=== PATIENT | female | born 1990 | race Caucasian/White ===

== ENCOUNTER 2016-07-05 18:17 | Emergency (ER) | payer OTHER ==
[2016-07-05 18:35] VITALS: BP 145/90
--- NOTE | 2016-07-05 19:07 | UC ---
Ear Complaint HPI - HPI Summary HPI Summary: constant right ear pain/pressure 2 weeks after a cold. No further sinus congestion or cough. No fever. Good appetite. - History of Current Complaint Chief Complaint: UC Stated Complaint: right ear complaint Time Seen by Provider: 07/05/16 18:57 Hx Obtained From: Patient Hx Last Menstrual Period: 06/10/16 Onset/Duration: Gradual Onset, Lasting Days - 3 Severity Initially: Mild Severity Currently: Moderate Alleviating Factors: Nothing Associated Signs/Symptoms: Positive: URI Symptoms. Negative: Discharge, Hearing Loss, Foreign Body Sensation, Trauma to Ear, Swelling @ - Allergies/Home Medications Allergies/Adverse Reactions: Allergies Allergy/AdvReac Type Severity Reaction Status Date / Time No Known Allergies Allergy Verified 10/03/15 01:59 PMH/Surg Hx/FS Hx/Imm Hx Previously Healthy: Yes Endocrine History Of: Denies: Diabetes GI/ History Of: Denies: Renal Disease - Surgical History Surgical History: None - Family History Known Family History: Negative: Respiratory Disease, Seizure Disorder - Social History Occupation: Employed Full-time Alcohol Use: Occasionally Substance Use Type: None Smoking Status (MU): Never Smoked Tobacco Review of Systems Constitutional: Negative Skin: Negative Eyes: Negative ENT: Ear Ache Respiratory: Negative Cardiovascular: Negative Gastrointestinal: Negative Genitourinary: Negative Motor: Negative Neurovascular: Negative Musculoskeletal: Negative Neurological: Negative Psychological: Negative All Other Systems Reviewed And Are Negative: Yes Physical Exam Triage Information Reviewed: Yes Appearance: Well-Appearing, No Pain Distress, Well-Nourished Vital Signs: Initial Vital Signs Temp 98.2 F 07/05/16 18:29 Pulse 104 07/05/16 18:29 Resp 16 07/05/16 18:29 BP 145/90 07/05/16 18:29 Pulse Ox 100 07/05/16 18:29 Vital Signs Reviewed: Yes Eye Exam: Normal ENT: Positive: Hearing grossly normal, Pharynx normal, TM dull - right TM dull, retracted, yellowish/orangish. Left TM normal. Negative: Tonsillar swelling, Tonsillar exudate, Trismus, Muffled/hoarse voice Neck exam: Normal Neck: Positive: Supple, Nontender, No Lymphadenopathy Respiratory Exam: Normal Cardiovascular Exam: Normal Musculoskeletal Exam: Normal Neurological Exam: Normal Psychological Exam: Normal Skin Exam: Normal Ear Complaint Course/Dx - Differential Dx/Diagnosis Differential Diagnosis/HQI/PQRI: Cerumen Impaction, Otitis Externa, Otitis Media Provider Diagnoses: right OM Discharge - Discharge Plan Condition: Stable Disposition: HOME Prescriptions: Amoxicillin (*) 875 mg PO BID #20 tab Oxymetazoline 0.05% NASAL SPR* [Afrin 0.05% NASAL SPRAY*] 1 spray NASAL Q12H #1 btl Patient Education Materials: Otitis Media (ED)
== END 2016-07-05 19:30 | disposition home or self-care (01) ==
LOC: UCCORT 18:17
DX: H66.91 Otitis media, unspecified, right ear (principal)
CPT/HCPCS: 99212; G0463